=== PATIENT | female | born 1990 | race Caucasian/White ===

== ENCOUNTER → 2016-10-10 | Outpatient (CLI) | payer SELFPAY | LOC: RAD 15:35 | PROVIDERS: ATTEND Nurse Practitioner Women's Health | DX: Z34.01 Encounter for supervision of normal first pregnancy, first trimester (principal) | CPT/HCPCS: 76801 ==

== ENCOUNTER 2016-12-20 09:26 | Emergency (ER) | payer MEDICAID ==
--- NOTE | 2016-12-20 10:03 | ER Document Report ---
ED GI/ - General Chief Complaint: Abdominal Pain Stated Complaint: ABDOMINAL PAIN Time Seen by Provider: 12/20/16 10:00 Mode of Arrival: Ambulatory Information source: Patient Notes: 26 year old female presents to ED for sharp shooting pain in the left pelvic and left lower abdomen. She is 17 weeks this child. She denies any urinary symptoms she denies any vaginal bleeding. TRAVEL OUTSIDE OF THE [place] IN LAST 30 DAYS: No - HPI Patient complains to provider of: Abdominal pain, Pelvic pain, Timing/Duration: Intermittent Quality of pain: Burning, Sharp Severity at maximum: Severe Severity in ED: Severe Pain Level: 5 Location: LLQ, Pelvis Vaginal bleeding (Compared to normal period): None Menstrual period history: LMP: 17 Weeks : 1 Para: 0 heart tones (bpm): 148 Associated symptoms: Other - pelvic pain Exacerbated by: Movement Relieved by: Denies Similar symptoms previously: No Recently seen / treated by doctor: No - Related Data Allergies/Adverse Reactions: No Known Allergies Allergy (Unverified 12/20/16 09:29) Past Medical History - General Information source: Patient - Social History Smoking Status: Never Smoker Cigarette use (# per day): No Chew tobacco use (# tins/day): No Smoking Education Provided: No Frequency of alcohol use: None Drug Abuse: None Lives with: Family Family History: Reviewed & Not Pertinent Patient has suicidal ideation: No Patient has homicidal ideation: No - Past Medical History Cardiac Medical History: Reports: None Pulmonary Medical History: Reports: None EENT Medical History: Reports: None Neurological Medical History: Reports: None Endocrine Medical History: Reports: None Renal/ Medical History: Reports: None Malignancy Medical History: Reports: None GI Medical History: Reports: None Musculoskeltal Medical History: Reports None Skin Medical History: Reports None Psychiatric Medical History: Reports: None Traumatic Medical History: Reports: None Infectious Medical History: Reports: None Surgical Hx: Negative - Immunizations Hx Diphtheria, Pertussis, Tetanus Vaccination: Yes Review of Systems - Review of Systems Constitutional: No symptoms reported EENT: No symptoms reported Cardiovascular: No symptoms reported Respiratory: No symptoms reported Gastrointestinal: No symptoms reported Genitourinary: No symptoms reported Female Genitourinary: , Other - pelvic Musculoskeletal: No symptoms reported Skin: No symptoms reported Hematologic/Lymphatic: No symptoms reported Neurological/Psychological: No symptoms reported Physical Exam - Vital signs Vitals: Temp Pulse Resp BP Pulse Ox 97.9 F 80 16 114/56 L 100 12/20/16 09:30 12/20/16 09:30 12/20/16 09:30 12/20/16 09:30 12/20/16 09:30 Interpretation: Normal - General General appearance: Appears well, Alert - HEENT Head: Normocephalic, Atraumatic Eyes: Normal Pupils: PERRL - Respiratory Respiratory status: No respiratory distress Chest status: Nontender Breath sounds: Normal Chest palpation: Normal - Cardiovascular Rhythm: Regular Heart sounds: Normal auscultation Murmur: No - Abdominal Inspection: Gravid female Distension: No distension Bowel sounds: Normal Tenderness: Nontender. No: Tender Organomegaly: No organomegaly - Back Back: Normal, Nontender - Extremities General upper extremity: Normal inspection, Nontender, Normal color, Normal ROM , Normal temperature General lower extremity: Normal inspection, Nontender, Normal color, Normal ROM , Normal temperature, Normal weight bearing. No: Angle's sign - Neurological Neuro grossly intact: Yes Cognition: Normal Orientation: AAOx4 Malathi Coma Scale Eye Opening: Spontaneous [place]athi Coma Scale Verbal: Oriented [place] Coma Scale Motor: Obeys Commands Malathi Coma Scale Total: 15 Speech: Normal Motor strength normal: LUE, RUE, LLE, RLE Sensory: Normal - Psychological Associated symptoms: Normal affect, Normal mood - Skin Skin Temperature: Warm Skin Moisture: Dry Skin Color: Normal Course - Re-evaluation Re-evalutation: 12/20/16 12:02 Discussed ultrasound and labs with patient and family and reports given the patient. Patient will be discharged home with instructions concerning round ligament pain and pelvic pain in patient states she has a ROUTE INSPECTOR appointment on Thursday. Patient discharged home. - Vital Signs Vital signs: Temp Pulse Resp BP Pulse Ox 97.9 F 80 16 114/56 L 100 12/20/16 09:30 12/20/16 09:30 12/20/16 09:30 12/20/16 09:30 12/20/16 09:30 - Diagnostic Test Radiology reviewed: Image reviewed, Reports reviewed Discharge - Discharge Clinical Impression: Pain of round ligament affecting , antepartum Condition: Stable Disposition: HOME, SELF-CARE Additional Instructions: Pelvic Pain and Round Ligament Pain Lower abdominal pain during can have many causes. We look for serious causes such as appendicitis, tubal , miscarriage, placental separation, or urinary tract infection. Less serious causes of pain include corpus luteum cyst (ovarian cyst of ) or stretching of the pelvic tissues by the enlarging uterus. Sometimes the pain comes from the bowels. If no specific cause for the pain is found, we attribute the pain to stretching of the uterine ligaments. This is called "round ligament strain." It is not dangerous. Just rest until the pain goes away. Call us or come back for reexamination if any problems occur, such as: (1) Pain that becomes more severe, steady, or becomes concentrated in one specific area. Also, pain that is more severe with movement or coughing. (2) Vomiting that persists or becomes more frequent. (3) Blood in the vomitus, urine, or bowel movements. Blood in the stool may have a tarry or black appearance. (4) Shaking chills or fever greater than 100 degrees. (5) The abdomen becomes more distended or swollen. (6) Bowel movements cease. (7) Vaginal bleeding. Warm Packs After approximately two days, apply gentle heat (such as a heating pad or hot water bottle) for about 20 to 30 minutes about every two hours -- at least four times daily. Warmth and elevation will help you make a more rapid recovery , and will ease the pain considerably. Do not use HOT heat, and never apply heat for longer than 30 minutes. The continuous heat can invisibly damage skin and muscles -- even when no burn is seen on the surface. Damaged muscles can make you MORE sore. Acetaminophen Acetaminophen may be taken for pain relief or fever control. It's much safer than aspirin, offering a wider range of "safe" dosages. It is safe during . Some brand names are Tylenol, Panadol, Datril, Anacin 3, Tempra, and Liquiprin. Acetaminophen can be repeated every four hours. The following are maximum recommended dosages: WEIGHT Dose Drops Elixir Chewable( 80mg) (LBS.) drprs=droppers tsp=teaspoon 6 40 mg .4 ml (1/2) 6-11 80 mg .8 ml (full) 1/2 tsp 1 tab 12-16 120 mg 1 1/2 drprs 3/4 tsp 1 1/2 tabs 17-23 160 mg 2 drprs 1 tsp 2 tabs 24-30 240 mg 3 drprs 1 1/2 tsp 3 tabs 30-35 320 mg 2 tsp 4 tabs 36-41 360 mg 2 1/4 tsp 4 1 /2 tabs 42-47 400 mg 2 1/2 tsp 5 tabs 48-53 480 mg 3 tsp 6 tabs 54-59 520 mg 3 1/4 tsp 6 1 /2 tabs 60-64 560 mg 3 1/2 tsp 7 tabs 65-70 600 mg 3 3/4 tsp 7 1 /2 tabs 71-76 640 mg 4 tsp 8 tabs 77-82 720 mg 4 1/2 tsp 9 tabs 83-88 800 mg 5 tsp 10 tabs >89 pounds or adults 650 mg to 900 mg Acetaminophen can be repeated every four hours. Maximum daily dose not to exceed 4000 mg. These maximum recommended dosages are slightly higher than the dosages written on the product container, but these dosages are very safe and well below the toxic dosage for acetaminophen. FOLLOW-UP CARE: If you have been referred to a physician for follow-up care, call the physician s office for an appointment as you were instructed or within the next two days. If you experience worsening or a significant change in your symptoms, notify the physician immediately or return to the Emergency Department at any time for re-evaluation.
[2016-12-20 10:30] LABS: APPEARANCE,URINE CLEAR; BILIRUBIN,URINE NEGATIVE (NEGATIVE); GLUCOSE, URINE NEGATIVE (NEGATIVE); KETONES,URINE NEGATIVE (NEGATIVE); LEUKOCYTE ESTERASE,URINE NEGATIVE (NEGATIVE); NITRITE,URINE NEGATIVE (NEGATIVE); PROTEIN,URINE NEGATIVE (NEGATIVE); URINE SPECIFIC GRAVITY 1.004; UROBILINOGEN,URINE NEGATIVE mg/dL (<2.0)
--- NOTE | 2016-12-20 11:03 | RADIOLOGY REPORT (SQ) ---
EXAM DESCRIPTION: U/S OB 14+ TRNABD 1GES W/O DOP COMPLETED DATE/TIME: 12/20/2016 10:48 am REASON FOR STUDY: Left pelvic pain 17 weeks COMPARISON: 10/10/2016. TECHNIQUE: Static and Dynamic grayscale imaging performed of gravid uterus using transabdominal appr oach. Additional selected color Doppler and spectral images recorded. All stored on PACS. LIMITATIONS: None. FINDINGS: EGA: 17 week 4 day WILBER: 05/26/2017 EFW: 202 g +/- 30 g PERCENTILE: Not calculated. KERMIT: Largest vertical pocket 4.5 cm, normal. PLACENTA: Posterior. No abruption or previa evident. PRESENTATION: Cephalic. ANATOMY: HEART RATE: 148 beats per minute. FOUR CHAMBER HEART: Visualized. THREE VESSEL CORD: Yes. CORD INSERTION: Visualized. KIDNEYS AND BLADDER: Visualized. Appear normal. STOMACH: Visualized. Appears normal. SPINE: Normal as visualized. BRAIN AND LATERAL VENTRICLES: Visualized. Appear normal. OTHER: No other significant finding. MATERNAL ADNEXA: Maternal ovaries not visualized. CERVICAL LENGTH: 3.2 cm. Closed. OTHER: No other significant finding. IMPRESSION: LIVING INTRAUTERINE . ESTIMATED GESTATIONAL AGE 17 week 4 day. NO VISUALIZED ANOMALIES. Trimester of : Second trimester - 13 weeks 1 day to 27 weeks 6 days. TECHNICAL DOCUMENTATION: JOB ID: [id number] [email or web address]- All Rights Reserved
[2016-12-20 11:59] VITALS: BP 103/67
== END 2016-12-20 11:59 | disposition home or self-care (01) ==
LOC: ER 09:26
DX: O26.92 Pregnancy related conditions, unspecified, second trimester (principal); R10.2 Pelvic and perineal pain; R10.32 Left lower quadrant pain; Z3A.17 17 weeks gestation of pregnancy
CPT/HCPCS: 76805; 81001; 99284

== ENCOUNTER 2017-04-06 17:08 | Outpatient (CLI) | payer MEDICAID ==
[2017-04-06 18:13] LABS: APPEARANCE,URINE SLIGHTLY-CLOUDY; BILIRUBIN,URINE NEGATIVE (NEGATIVE); GLUCOSE, URINE 50 mg/dL (NEGATIVE); KETONES,URINE 20 mg/dL (NEGATIVE); LEUKOCYTE ESTERASE,URINE SMALL (NEGATIVE); NITRITE,URINE NEGATIVE (NEGATIVE); PROTEIN,URINE NEGATIVE (NEGATIVE)
--- NOTE | 2017-04-06 18:23 | Non Stress Test Report ---
Non Stress Test Datetime Report Generated by CPN: 04/06/2017 18:23 DEMOGRAPHIC Test Number: 1 EGA NST: 32.1 INDICATION Indication for Study: Ordered by Provider MONITORING Monitor Explained: Monitor Explained; Test Explained; Patient Verbalized Understanding Time on Monitor: 04/06/2017 17:25 Time off Monitor: 04/06/2017 18:17 NST Duration: 52 NST INTERVENTIONS NST Interventions: PO Hydration Physician Notified NST: [place] BABY A: [id number] BABY A Movement : Present Contraction Frequency : 0 FHR Baseline : 135 Accelerations : 15X15 Decelerations : None Variability : Absent - Undetectable NST Review: Meets Criteria for Reactive NST NST Review and Verified By : Laith Rivers RN NST Results: Reactive NST REPORT Report Trigger: Send Report
[2017-04-06 18:38] LABS: URINE BARBITURATES SCREEN NEGATIVE; URINE METHADONE SCREEN NEGATIVE; URINE OPIATES LOW NEGATIVE; URINE PHENCYCLIDINE SCREEN NEGATIVE
== END 2017-04-06 18:36 | disposition home or self-care (01) ==
LOC: LC 17:08
PROVIDERS: ATTEND Obstetrics & Gynecology
PROC: 4A1HXCZ Monitoring of Products of Conception, Cardiac Rate, External Approach (ICD-10-PCS; principal; 2017-04-06)
DX: O47.03 False labor before 37 completed weeks of gestation, third trimester (principal); Z3A.32 32 weeks gestation of pregnancy
CPT/HCPCS: 59025; 80307; 81005

== ENCOUNTER 2017-04-21 16:12 | Outpatient (CLI) | payer MEDICAID | END 2017-04-21 17:02 | disposition home or self-care (01) | LOC: LC 16:12 | PROVIDERS: ATTEND Obstetrics & Gynecology | PROC: 4A1HXCZ Monitoring of Products of Conception, Cardiac Rate, External Approach (ICD-10-PCS; principal; 2017-04-21) | DX: O24.913 Unspecified diabetes mellitus in pregnancy, third trimester (principal); Z3A.34 34 weeks gestation of pregnancy | CPT/HCPCS: 59025 ==

== ENCOUNTER 2017-05-08 15:23 | Inpatient (IN) | payer MEDICAID ==
[2017-05-08 16:30] LABS: APPEARANCE,URINE CLEAR; BILIRUBIN,URINE NEGATIVE (NEGATIVE); GLUCOSE, URINE NEGATIVE (NEGATIVE); KETONES,URINE NEGATIVE (NEGATIVE); LEUKOCYTE ESTERASE,URINE SMALL (NEGATIVE); NITRITE,URINE NEGATIVE (NEGATIVE); PROTEIN,URINE NEGATIVE (NEGATIVE); URINE SPECIFIC GRAVITY 1.005; UROBILINOGEN,URINE NEGATIVE mg/dL (<2.0)
[2017-05-08 16:36] LABS: URINE CREATININE 45.9 mg/dL (16-327); URINE PROTEIN 19.1 mg/dL (<12)
[2017-05-08 16:40] LABS: URINE BARBITURATES SCREEN NEGATIVE; URINE METHADONE SCREEN NEGATIVE; URINE OPIATES LOW NEGATIVE; URINE PHENCYCLIDINE SCREEN NEGATIVE
[2017-05-08 16:45] LABS: ABSOLUTE BASOPHILS # (AUTO) 0.1 10^3/uL (0.0-0.2); HEMATOCRIT 33.2 % (36.0-47.0)
[2017-05-08 16:55] LABS: ABSOLUTE LYMPHOCYTES (AUTO) 1.9 10^3/uL (0.5-4.7); ABSOLUTE MONOCYTES (AUTO) 0.7 10^3/uL (0.1-1.4); ABSOLUTE NEUT (AUTO) 8.4 10^3/uL (1.7-8.2); EOSINOPHILS % (AUTO) 0.4 % (0-6); HEMOGLOBIN 11.7 g/dL (12.0-15.5); HGB HCT DIFFERENCE 1.9; MEAN CORPUSCULAR HEMOGLOBIN 31.3 pg (27.0-33.4); MEAN CORPUSCULAR HGB CONC 35.2 g/dL (32.0-36.0); MEAN CORPUSCULAR VOLUME 89 fl (80-97); MONOCYTES % (AUTO) 6.6 % (3-13); RED BLOOD COUNT 3.74 10^6/uL (3.72-5.28); RED CELL DISTRIBUTION WIDTH 12.1 % (11.5-14.0); WHITE BLOOD COUNT 11.1 10^3/uL (4.0-10.5)
[2017-05-08 17:03] LABS: ALANINE AMINOTRANSFERASE 28 U/L (9-52); ALBUMIN 3.2 g/dL (3.5-5.0); ALKALINE PHOSPHATASE 191 U/L (38-126); ANION GAP 9 (5-19); ASPARTATE AMINO TRANSFERASE 16 U/L (14-36); BILIRUBIN,DIRECT 0.4 mg/dL (0.0-0.4); BILIRUBIN,TOTAL 0.4 mg/dL (0.2-1.3); BLOOD UREA NITROGEN 7 mg/dL (7-20); CALCIUM 9.1 mg/dL (8.4-10.2); CARBON DIOXIDE 21 mmol/L (22-30); CHLORIDE 108 mmol/L (98-107); GLUCOSE 80 mg/dL (75-110); LDH 427 U/L (313-618); POTASSIUM 4.2 mmol/L (3.6-5.0); SODIUM 138.1 mmol/L (137-145); TOTAL PROTEIN 5.8 g/dL (6.3-8.2); URIC ACID 5.5 mg/dL (2.5-6.2)
[2017-05-08] MEDS ORDERED: HYDRALAZINE HCL INJ/PF 20 MG/1 ML SDV IV ONE (17:05)
[2017-05-08] MEDS: RINGERS SOLUTION,LACTATED 1,000 ML IV PRN ×2 (17:06→17:20)
[2017-05-08] MEDS ORDERED: HYDRALAZINE HCL INJ/PF 20 MG/1 ML SDV ONE (17:07)
[2017-05-08] MEDS ORDERED: MAGNESIUM SULFATE 4 GM/100 ML RTUPB IV ONE ×2 (17:33→17:39)
[2017-05-08] MEDS: MAGNESIUM SULFATE 20 GM/500 ML RTUINJ IV PRN ×2 (18:08→19:10)
[2017-05-08] MEDS ORDERED: OXYTOCIN/NORMAL SALINE 20 UNIT/1,000 ML RTUINJ ONE (18:58)
[2017-05-08] MEDS: OXYTOCIN/NORMAL SALINE 20 UNIT/1,000 ML RTUINJ IV PRN (19:09)
[2017-05-08] MEDS ORDERED: LABETALOL HCL 200 MG TABLET ONE (19:54)
[2017-05-08] MEDS: LABETALOL HCL 200 MG TABLET PO SCH (20:06)
[2017-05-08] MEDS ORDERED: MAGNESIUM SULFATE/D5W 1 GM/100 ML RTUPB IV SCH (21:00)
[2017-05-08] MEDS ORDERED: ACETAMINOPHEN 325 MG TABLET ONE ×2 (21:42→21:44)
[2017-05-08] MEDS: ACETAMINOPHEN 325 MG TABLET PO PRN (22:57)
[2017-05-09] MEDS ORDERED: ACETAMINOPHEN 325 MG TABLET ONE (03:05)
[2017-05-09] MEDS: ACETAMINOPHEN 325 MG TABLET PO PRN (03:06)
[2017-05-09] MEDS ORDERED: NALBUPHINE HCL INJ 10 MG/1 ML AMPULE INJ ONE ×2 (03:40→08:57)
[2017-05-09] MEDS ORDERED: PROMETHAZINE HCL INJ 25 MG/1 ML VIAL IV ONE ×2 (03:41→08:57)
[2017-05-09] MEDS ORDERED: PROMETHAZINE HCL INJ 25 MG/1 ML VIAL ONE ×2 (03:44→09:00)
[2017-05-09] MEDS ORDERED: NALBUPHINE HCL INJ 10 MG/1 ML AMPULE ONE ×2 (03:45→09:00)
[2017-05-09] MEDS: MAGNESIUM SULFATE 20 GM/500 ML RTUINJ IV PRN ×2 (04:28→15:19)
[2017-05-09] MEDS ORDERED: LIDOCAINE 1% INJ-PF (10 MG/ML) 30 ML SDV ONE ×2 (05:14→13:10)
[2017-05-09] MEDS ORDERED: MISOPROSTOL 0.2 MG TABLET ONE (05:14)
[2017-05-09] MEDS ORDERED: OXYTOCIN/NORMAL SALINE 0 UNIT/0 ML RTUINJ ONE (05:14)
[2017-05-09] MEDS ORDERED: OXYTOCIN/NORMAL SALINE 20 UNIT/1,000 ML RTUINJ ONE (07:36)
[2017-05-09] MEDS: OXYTOCIN/NORMAL SALINE 20 UNIT/1,000 ML RTUINJ IV PRN (07:41)
[2017-05-09] MEDS ORDERED: LIDOCAINE 1% INJ-PF (10 MG/ML) 30 ML SDV INJ PRN (08:20)
[2017-05-09] MEDS ORDERED: MISOPROSTOL 0.2 MG TABLET PR PRN (08:20)
[2017-05-09] MEDS ORDERED: NALBUPHINE HCL INJ 10 MG/1 ML AMPULE IV ONE (08:58)
--- NOTE | 2017-05-09 08:58 | L&D Progress Notes ---
PROGRESS NOTES Datetime Report Generated by CPN: 05/09/2017 08:58 PROGRESS NOTE Impression: Normal Progression of Labor; Reassuring Heart Rate; Reactive Non Stress Test Impression: Normal Progression of Labor; Reassuring Heart Rate; Reactive Non Stress Test Procedures: Sterile Vag Exam Procedures: Sterile Vag Exam Plan: Continue Present Management Plan: Continue Present Management Vital Signs : Reviewed Vital Signs : Reviewed Vital Signs Comments: Mildly elevated Comment: FHR 125, moderate variability, cat I, cephalic, external US. VAGINAL EXAM Dilatation: 5 Dilatation: 3 Effacement: 100 Effacement: 60 Station: 0 Station: -1 Contractions: rare MEMBRANES Membranes: Ruptured Membranes: Intact FETUS A FHR - Baseline: 125 FHR - Baseline: 125 Monitoring: External US Variability: Moderate 6-25bpm Variability: Moderate 6-25bpm Accelerations: 15X15 Accelerations: 15X15 Decelerations: None Decelerations: None FHR Category: Category I FHR Category: Category I Estimated Weight (gm): 3000 Presentation: Vertex SIGNATURE SIGNATURE: [id number] SIGNATURE: [id number] SIGNATURE: [id number] Signature: with User ID: [email or web address]
[2017-05-09] MEDS ORDERED: LABETALOL HCL 200 MG TABLET ONE ×2 (09:04→21:52)
[2017-05-09] MEDS: LABETALOL HCL 200 MG TABLET PO SCH ×2 (09:09→21:56)
[2017-05-09] MEDS: RINGERS SOLUTION,LACTATED 1,000 ML IV PRN ×2 (09:14→20:15)
[2017-05-09] MEDS ORDERED: BUPIVACAINE HCL 0.25 % INJ/PF (2.5 MG/1 ML) 30 ML VIAL INFIL PRN (10:38)
[2017-05-09] MEDS ORDERED: FENTANYL/BUPIVACAINE/NS/PF 200 MCG/100 ML RTUINJ EPI PRN (10:38)
[2017-05-09] MEDS ORDERED: FENTANYL CITRATE INJ/PF 100 MCG/2 ML AMPUL EPI PRN (10:38)
[2017-05-09] MEDS ORDERED: BENZOIN/ALOE VERA/STORAX/TOLU TINCTURE 60 ML TP PRN (10:38)
[2017-05-09] MEDS ORDERED: EPHEDRINE SULFATE INJ 50 MG/1 ML AMPULE ONE (10:44)
[2017-05-09] MEDS ORDERED: FENTANYL/BUPIVACAINE/NS/PF 0 MCG/0 ML RTUINJ EPI ONE (10:44)
[2017-05-09] MEDS ORDERED: BUPIVACAINE HCL 0.25 % INJ/PF (2.5 MG/1 ML) 30 ML VIAL ONE (10:44)
[2017-05-09] MEDS ORDERED: FENTANYL CITRATE INJ/PF 100 MCG/2 ML AMPUL ONE (10:45)
[2017-05-09] MEDS ORDERED: OXYTOCIN/NORMAL SALINE 20 UNIT/1,000 ML RTUINJ IV PRN (13:35)
[2017-05-09] MEDS ORDERED: DIPH/PERTUSS(ACELL)/TETANUS VAC/PF 0.5 ML SYR (>=10YO) IM PRN (13:35)
[2017-05-09] MEDS ORDERED: HYDROCODONE/ACETAMINOPHEN 5-325 MG TABLET PO PRN (13:35)
[2017-05-09] MEDS ORDERED: MEASLES,MUMPS&RUBELLA VACC/PF 0.5 ML VIAL SUBCUT PRN (13:35)
[2017-05-09] MEDS ORDERED: ACETAMINOPHEN WITH CODEINE #3 TABLET PO PRN ×2 (13:35)
[2017-05-09] MEDS ORDERED: BENZOCAINE/MENTHOL AEROSOL SPRAY 56 ML TOP PRN (13:35)
[2017-05-09] MEDS ORDERED: ZOLPIDEM TARTRATE 5 MG TABLET PO PRN (13:35)
[2017-05-09] MEDS ORDERED: DIBUCAINE 1% OINTMENT 28 GM TP PRN (13:35)
[2017-05-09] MEDS ORDERED: DIPHENHYDRAMINE HCL 25 MG CAPSULE PO PRN (13:38)
[2017-05-09] MEDS ORDERED: ONDANSETRON HCL 8 MG TABLET PO PRN (13:38)
[2017-05-09] MEDS ORDERED: PROMETHAZINE HCL 25 MG TABLET PO PRN (13:38)
[2017-05-09] MEDS ORDERED: FAMOTIDINE 20 MG TABLET PO PRN (13:39)
[2017-05-09] MEDS ORDERED: IBUPROFEN 800 MG TABLET ONE ×2 (14:56→21:52)
[2017-05-09] MEDS: IBUPROFEN 800 MG TABLET PO SCH ×2 (14:58→21:56)
--- NOTE | 2017-05-09 15:28 | Delivery Summary ---
Del Sum A-C Datetime Report Generated by CPN: 05/09/2017 15:28 DELIVERY PERSONNEL DELIVERY PERSONNEL: [id number] Delivery Doctor:: Jon Lopez MD Labor and Delivery Nurse:: Merry Jaeger RNglue bone crusher Nurse:: Maddie Mcpherson RN Nursery Nurse:: Kym Guy RN MATERNAL INFORMATION Delivery Anesthesia: Local Medications After Delivery: Pitocin Bolus-Please Comment; Pitocin Drip 20 Units/1000ml NSS; Other-Please Comment Meds After Delivery Comment: 1000 MCG cytotec PA Estimated Blood Loss (ml): 300 Maternal Complications: Other Other Maternal Complications: Preeclampsia GDM - not controlled Provider Comments: Pt C_P. Head delivered OSWALDO. Anterior and posterior shoulder delivered followed by rest of body. Baby placed on mom's abdomen. After 1min, cord clamped x 2 and cut. Placenta delivered intact with 3VC. Lacs repaired as above. LABOR SUMMARY EDC: 05/31/2017 00:00 No. Babies in Womb: 1 Attempted: No Labor Anesthesia: None LABOR INFORMATION Reason for Induction: Pre-Eclampsia Oxytocin: Induction Group B Beta Strep: negative Antibiotics # of Doses: 0 Antibiotics Time of Last Dose: n/a Name of Antibiotic Given: n/a Steroids Given: None Reason Steroids Not Administered: Not Applicable MEMBRANES Membranes Rupture Method: Spontaneous Rupture of Membranes: 05/09/2017 01:43 Length of Rupture (hr): 11.02 Amniotic Fluid Color: Clear Amniotic Fluid Amount: Moderate Amniotic Fluid Odor: Normal STAGES OF LABOR Stage 3 hr: 0 Stage 3 min: 6 VAGINAL DELIVERY Episiotomy: None Laceration #1: Vaginal Laceration Extension #1: Second Degree Laceration #2: Periurethral Laceration Repair: Yes Laceration Repair Note: Vaginal lac repaired with 2.0 Vicryl in a running locked fashion and 3.0 Vicryl in interrupted fashion. Bilateral labial/periurethral lacs repaired with 3.0 Vicryl in interrupted fashion. Sponge Count Correct: Yes Sharps Count Correct: Yes CSECTION DELIVERY Primary Indication: N/A Secondary Indication: Repeat Elective CSection Urgency: N/A CSection Incidence: N/A Labor: N/A Elective: N/A CSection Incision: N/A BABY A INFORMATION Delivery Date/Time: 05/09/2017 12:44 Method of Delivery: Vaginal Born in Route : No : N/A Forceps: N/A Vacuum Extraction: N/A Shoulder Dystocia : No PRESENTATION/POSITION BABY A Presentation: Cephalic Cephalic Presentation: Vertex Vertex Position: Left Occipital Anterior Breech Presentation: N/A PLACENTA INFORMATION BABY A Placenta Delivery Time : 05/09/2017 12:50 Placenta Method of Delivery: Spontaneous Placenta Status: Delivered SCORES BABY A Heart Rate 1 min: >100 bpm Resp Effort 1 min: Good Cry Reflex Irritability 1 min: Cough or Sneeze or Pulls Away Muscle Tone 1 min: Active Motion Color 1 min: Blue/Pale Resuscitation Effort 1 min: N/A SCORE 1 MIN: 8 Heart Rate 5 min: >100 bpm Resp Effort 5 min: Good Cry Reflex Irritability 5 min: Cough or Sneeze or Pulls Away Muscle Tone 5 min: Active Motion Color 5 min: Body Dorothy, Extremities Blue SCORE 5 MIN: 9 INFORMATION BABY A Gestational Age at Delivery: 36.6 Gestational Status: Late - 34- 36.6 Weeks Outcome : Liveborn Condition : Stable Sex: Male IDENTIFICATION BABY A Infant Verification Date/Time: 05/09/2017 13:01 ID Band Number: [id number] Mother's Name Verified: Yes Infant RN Verifying : Tarun Ocampo RN/ DJazz Escamilla, RNC WEIGHT/LENGTH BABY A Infant Birthweight (gm): 2820 Infant Weight (lb): 6 Weight (oz): 3 Infant Length (in): 20.00 Infant Length (cm): 50.80 CORD INFORMATION BABY A No. Cord Vessels: 3 Nuchal Cord : N/A Cord Blood Taken: Yes-For Storage (Mom's Blood type +) Infant Suction: Mouth; Nose ASSESSMENT BABY A Complications: Multiple Variable Decels Physical Findings at Delivery: Within Normal Limits; Molding of the Head Infant Respirations: Appears Normal Skin to Skin: Yes Skin to Skin Time (min): 90 Internet Specialist/ALS Called : No Care By: Tony Guy RN Transferred To: Remains with Mother BABY B INFORMATION : N/A SIGNATURES Signature: with User ID: [email or web address]
[2017-05-09] MEDS: DOCUSATE SODIUM 100 MG CAPSULE PO SCH (18:51)
[2017-05-09] MEDS ORDERED: FERROUS SULFATE 325 MG TABLET PO ONE (18:52)
[2017-05-09] MEDS: FERROUS SULFATE 325 MG TABLET PO SCH (18:54)
[2017-05-10 07:47] LABS: HEMATOCRIT 25.8 % (36.0-47.0); HGB HCT DIFFERENCE 1.8; MEAN CORPUSCULAR HEMOGLOBIN 32.1 pg (27.0-33.4); MEAN CORPUSCULAR HGB CONC 35.7 g/dL (32.0-36.0); MEAN CORPUSCULAR VOLUME 90 fl (80-97); RED BLOOD COUNT 2.87 10^6/uL (3.72-5.28); RED CELL DISTRIBUTION WIDTH 12.3 % (11.5-14.0); WHITE BLOOD COUNT 13.3 10^3/uL (4.0-10.5)
[2017-05-10 07:51] LABS: HEMOGLOBIN 9.2 g/dL (12.0-15.5)
[2017-05-10] MEDS: RINGERS SOLUTION,LACTATED 1,000 ML IV PRN (09:57)
[2017-05-10] MEDS: MAGNESIUM SULFATE 20 GM/500 ML RTUINJ IV PRN (09:58)
[2017-05-10] MEDS ORDERED: LABETALOL HCL 200 MG TABLET ONE (09:59)
[2017-05-10] MEDS ORDERED: SENNOSIDES/DOCUSATE 8.6-50 MG 1 EACH TABLET PO SCH (10:00)
[2017-05-10] MEDS: LABETALOL HCL 200 MG TABLET PO SCH ×2 (10:00→21:37)
[2017-05-10] MEDS ORDERED: IBUPROFEN 800 MG TABLET ONE (10:03)
[2017-05-10] MEDS ORDERED: PRENATAL VITAMIN W DHA CAPSULE PO ONE (10:03)
[2017-05-10] MEDS ORDERED: FERROUS SULFATE 325 MG TABLET PO ONE (10:03)
[2017-05-10] MEDS ORDERED: DOCUSATE SODIUM 100 MG CAPSULE ONE (10:03)
[2017-05-10] MEDS: FERROUS SULFATE 325 MG TABLET PO SCH ×2 (10:06→17:03)
[2017-05-10] MEDS: PRENATAL VITAMIN W DHA CAPSULE PO SCH (10:07)
[2017-05-10] MEDS: DOCUSATE SODIUM 100 MG CAPSULE PO SCH ×2 (10:07→17:03)
[2017-05-10] MEDS: IBUPROFEN 800 MG TABLET PO SCH ×2 (10:08→21:36)
--- NOTE | 2017-05-10 14:34 | Admission Physical ---
Datetime Report Generated by CPN: 05/10/2017 14:34 CURRENT ADMISSION Hx Assessment: The History has been Reviewed and is Current Chief Complaint: Signs/Symptoms Gestational HTN; Sent from OB Office for Evaluation and Treatment - Please Specify Indication for Induction: PreEclampsia Indication for Induction: , Intrauterine ; No Active Labor; Intact Membranes; Induction of Labor Indication for Induction- Other: non-compliant gdm Admit Plan: Admit to Unit; Initiate Labor Induction Protocol ALLERGIES Medication Allergies: No Medication Allergies: No Known Allergies (04/29/2017) Medication Allergies: No Known Allergies (04/21/2017) Medication Allergies: No Known Allergies (12/20/2016) Latex: No Latex Allergies Food Allergies: None Environmental Allergies: None OBSTETRICAL HISTORY EDC: 05/31/2017 00:00 : 1 Para: 0 Term: 0 : 0 SAB: 0 IAB: 0 Ectopic: 0 Livin Cesareans: 0 VBACs: 0 Multiple Births: 0 Gestational Diabetes: Yes Rh Sensitization: No Incompetent Cervix: No AFSHAN: No Infertility: No ART Treatment: No Uterine Anomaly: No IUGR: No Hx Previous C/S: No Macrosomia: No Hx Loss/Stillborn: No PIH: No Hx : No Placenta Previa/Abruption: No Depression/PP Depression: No PTL/PROM: No Post Hemorrhage: No Current Procedures: Ultrasound Obstetrical History Comments: G1 current SEE RECORDS Alcohol: No Marijuana : No Cocaine: No Other Illicit Drugs: No Cigarettes: Never Smoker. 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 Surgery: No Heart Disease: No Hosp/Surgery: No Autoimmune Disorder: No Anesthetic Complications: No Kidney Disease: No Abnormal Pap Smear: No Neuro/Epilepsy: No Psychiatric Disorders: No Other Medical Diseases: No Hepatitis/Liver Disease: No Significant Family History: No Varicosities/Phlebitis: No Trauma/Violence : No Thyroid Dysfunction: No Medical History Comments: Depression, Anxiety INFECTIOUS HISTORY Gonorrhea: No Genital Herpes: No Chlamydia: No Tuberculosis: No Syphilis: No Hepatitis: No HIV/AIDS Exposure: No Rash or Viral Illness: No HPV: No PHYSICAL EXAM General: Normal HEENT: Normal Neurologic: Normal Thyroid: Deferred Heart: Normal Lungs: Normal Breast: Normal Back: Normal Abdomen: Normal Genitourinary Exam: Normal Extremities: Normal DTRs: Normal Pelvic Type: Adequate Vital Signs: Reviewed Details Vital Signs: elevated bp VAGINAL EXAM Dilatation: 5 Dilatation: 3 Effacement: 100 Effacement: 60 Station: 0 Station: -1 Contraction Comments: rare MEMBRANES Membranes: Ruptured Membranes: Intact FETUS A EGA: 36.5 Monitoring: External US FHR- Baseline: 125 Variability: Moderate 6-25bpm Accelerations: 15X15 Decelerations: None FHR Category: Category I Estimated Weight (gm): 3000 Presentation: Vertex Admit Comment: pt sent from office for increased blood pressure, states active baby, denies vag bleeding, lof, or ctx. Denies headache, epigastric pain, or visual disturbances. P/C ratio 0.4, labs pending Admit to L _ D Hydralazine 5mg now, may repeat in 20 min Magnesium sulfate 4 g bolus then 2 g/hr Pitocin per protocol Pt was GDM, non-compliant THC + on multiple occassions. needs d/c planning. GBS negative PLANS FOR LABOR AND DELIVERY Labor and Delivery: None Pain Management: Natural Feeding Preference: Breast Benefit of Breast Feed Discussed: Yes Circumcision: Yes INFORMED CONSENT Assignment: Kolby Fuller MD Signature: with User ID: [email or web address] : with User ID: [email or web address]
[2017-05-11] MEDS: IBUPROFEN 800 MG TABLET PO SCH ×3 (06:15→21:29)
[2017-05-11] MEDS: DOCUSATE SODIUM 100 MG CAPSULE PO SCH ×2 (09:07→17:27)
[2017-05-11] MEDS: LABETALOL HCL 200 MG TABLET PO SCH ×3 (09:07→21:29)
[2017-05-11] MEDS: PRENATAL VITAMIN W DHA CAPSULE PO SCH (09:08)
[2017-05-11] MEDS: FERROUS SULFATE 325 MG TABLET PO SCH ×2 (09:08→17:27)
[2017-05-11] MEDS ORDERED: ZOLPIDEM TARTRATE 5 MG TABLET PO PRN (14:00)
[2017-05-11] MEDS ORDERED: DIPH/PERTUSS(ACELL)/TETANUS VAC/PF 0.5 ML SYR (>=10YO) IM PRN (14:00)
--- NOTE | 2017-05-11 14:44 | PDOC PROGRESS REPORT ---
Subjective-OB Subjective: Post Delivery Day:2 27 year old G1 now P1 s/p ppd2. Ambulating, voiding and breasteeding without difficulty. Denies headache, RUQ pain or other discomforts. Reports blurry vision earlier today. Denies any needs at this time Physical Exam (OB) Vital Signs: Temp Pulse Resp BP Pulse Ox 98.1 F 79 17 134/91 H 100 05/11/17 11:13 05/11/17 11:13 05/11/17 11:13 05/11/17 11:13 05/11/17 11:13 - General General Appearance: Appears well In distress: None - PIH/Pre-Eclampsia DTR's: 1 + Clonus: Negative Headache: Absent Epigastric Pain: No Visual Changes: No PIH/Pre-Eclampsia Note: reviewed hx and BPs with Dr. Quiroz who agrees with increasing labetalol dose to TID and continue stay for 24hrs. - Episiotomy/Laceration Site Condition: Well Approximated, Edematous - Lochia Lochia Amount: Scant < 10 ml Lochia Color: Rubra/Red - Abdomen Description: Soft, Round Hernia Present: No Fundal Description: Firm, Midline Fundal Height: u/u - u/2 - Respiratory Respiratory Status: No respiratory distress - Extremities Upper extremity: Normal inspection Lower extremities: Edema Calf: Normal, Nontender - Neurological Cognition: Normal Orientation: AAOx4 - Psychological Associated symptoms: Normal affect, Normal mood Objective-Diagnostic Laboratory: 05/10/17 07:03 05/08/17 16:19 Assessment and Plan(PN) - Assessment and Plan (1) Vaginal delivery Is this a current diagnosis for this admission?: Yes Plan: routine pp care (2) Preeclampsia Qualifiers: Trimester: third trimester Qualified Code(s): O14.93 - Unspecified pre- eclampsia, third trimester Is this a current diagnosis for this admission?: Yes Plan: continue to monitor for worsening s/s of pre-e. Increase dose of labetalol to TID and continue inpatient status x 24hr or more prn (3) Acute blood loss anemia Is this a current diagnosis for this admission?: Yes Plan: inc. dietary iron and po feso4 bid - Time Spent with Patient Time with patient: 15-25 minutes Medications reviewed and adjusted accordingly: Yes - Disposition Anticipated Discharge: Home Within: within 24 hours
[2017-05-12] MEDS: LABETALOL HCL 200 MG TABLET PO SCH (06:04)
[2017-05-12] MEDS: IBUPROFEN 800 MG TABLET PO SCH (06:04)
[2017-05-12 08:00] VITALS: BP 134/73
[2017-05-12] MEDS: FERROUS SULFATE 325 MG TABLET PO SCH (09:38)
[2017-05-12] MEDS: DOCUSATE SODIUM 100 MG CAPSULE PO SCH (09:38)
[2017-05-12] MEDS: PRENATAL VITAMIN W DHA CAPSULE PO SCH (09:38)
--- NOTE | 2017-05-12 10:19 | PDOC DISCHARGE SUMMARY ---
Final Diagnosis Discharge Date: 05/12/17 - Final Diagnosis (1) Acute blood loss anemia Is this a current diagnosis for this admission?: Yes (2) Preeclampsia Is this a current diagnosis for this admission?: Yes (3) Vaginal delivery Is this a current diagnosis for this admission?: Yes Discharge Data - Discharge Medication Home Medications: Vit Calc,Iron,Folic [ Vitamins] 1 tab PO DAILY 04/06/17 Diphenhydramine HCl [Benadryl 25 mg Capsule] 25 mg PO Q6HP PRN #60 capsule 05/12 Docusate Sodium [Colace 100 mg Capsule] 100 mg PO BID #60 capsule 05/12/17 Ferrous Sulfate [Feosol 325 mg Tablet] 325 mg PO BID #60 tablet 05/12/17 Ibuprofen [Motrin 800 mg Tablet] 800 mg PO Q8 #60 tablet 05/12/17 Labetalol HCl [Normodyne 200 mg Tablet] 200 mg PO Q8 #90 tablet 05/12/17 Gestational Age: 36.6 Reason(s) for Admission: Onset of Labor, Induction of Labor, PIH Procedures: NST Intrapartum Procedure(s): Spontaneous Vaginal Delivery - Data Baby 1 Male at 1 minute: 8 at 5 minutes: 9 Weight: 2820 kg Home with Mother: Yes Complications: No - Diagnosis Test Laboratory: Temp Pulse Resp BP Pulse Ox 97.9 F 64 15 134/73 H 99 05/12/17 08:35 05/12/17 08:35 05/12/17 08:35 05/12/17 07:57 05/12/17 08:35 05/08/17 05/08/17 05/10/17 15:33 16:19 07:03 RBC 3.74 2.87 L Hgb 11.7 L 9.2 L D Hct 33.2 L 25.8 L Urine Opiates Screen NEGATIVE - Discharge information/Instructions Discharge Activity: Balance Activity w/Rest Discharge Diet: Regular Disposition: HOME, SELF-CARE Follow up with: [facility] in: 1, Weeks
== END 2017-05-12 13:00 | disposition home or self-care (01) | DRG 775 ==
LOC: LC 15:23 → LR 17:35 → 2S 05-10 14:30
PROVIDERS: ADMIT Obstetrics & Gynecology; ATTEND Obstetrics & Gynecology
PROC: 4A1HXCZ Monitoring of Products of Conception, Cardiac Rate, External Approach (ICD-10-PCS; 2017-05-08)
PROC: 3E033VJ Introduction of Other Hormone into Peripheral Vein, Percutaneous Approach (ICD-10-PCS; 2017-05-08)
PROC: 10E0XZZ Delivery of Products of Conception, External Approach (ICD-10-PCS; principal; 2017-05-09)
PROC: 0HQ9XZZ Repair Perineum Skin, External Approach (ICD-10-PCS; 2017-05-09)
PROC: 0UQMXZZ Repair Vulva, External Approach (ICD-10-PCS; 2017-05-09)
DX: O14.94 Unspecified pre-eclampsia, complicating childbirth (principal); D62 Acute posthemorrhagic anemia; O24.429 Gestational diabetes mellitus in childbirth, unspecified control; O99.344 Other mental disorders complicating childbirth; F32.9 Major depressive disorder, single episode, unspecified; O76 Abnormality in fetal heart rate and rhythm complicating labor and delivery; F41.9 Anxiety disorder, unspecified; O70.0 First degree perineal laceration during delivery; O71.82 Other specified trauma to perineum and vulva; Z3A.36 36 weeks gestation of pregnancy; O99.02 Anemia complicating childbirth; Z91.19 Patient's noncompliance with other medical treatment and regimen; Z37.0 Single live birth
CPT/HCPCS: 36415; 80053; 80307; 81001; 82570; 82962; 83615; 84156; 84550; 85025; 85027; 86592; 86850; 86900; 86901; 88307; 94760; J0360; J2300; J2550; J2590; J3010; J3475; J3490